=== PATIENT | male | born 2000 | race Caucasian/White ===

== ENCOUNTER → 2020-02-13 | Outpatient (CLI) | payer OTHER | LOC: HYPER 09:16 | DX: T81.31XA Disruption of external operation (surgical) wound, not elsewhere classified, initial encounter (principal); L97.312 Non-pressure chronic ulcer of right ankle with fat layer exposed; Y83.8 Other surgical procedures as the cause of abnormal reaction of the patient, or of later complication, without mention of misadventure at the time of the procedure; Y92.89 Other specified places as the place of occurrence of the external cause ==

== ENCOUNTER → 2020-02-20 | Outpatient (CLI) | payer OTHER | LOC: HYPER 09:15 | DX: T81.31XD Disruption of external operation (surgical) wound, not elsewhere classified, subsequent encounter (principal); L97.312 Non-pressure chronic ulcer of right ankle with fat layer exposed; Y83.8 Other surgical procedures as the cause of abnormal reaction of the patient, or of later complication, without mention of misadventure at the time of the procedure ==

== ENCOUNTER → 2020-02-27 | Outpatient (CLI) | payer OTHER | LOC: HYPER 09:31 | DX: T81.31XD Disruption of external operation (surgical) wound, not elsewhere classified, subsequent encounter (principal); L97.312 Non-pressure chronic ulcer of right ankle with fat layer exposed; Y83.8 Other surgical procedures as the cause of abnormal reaction of the patient, or of later complication, without mention of misadventure at the time of the procedure ==

== ENCOUNTER → 2020-03-05 | Outpatient (CLI) | payer OTHER | LOC: HYPER 09:13 | DX: T81.31XD Disruption of external operation (surgical) wound, not elsewhere classified, subsequent encounter (principal); L97.312 Non-pressure chronic ulcer of right ankle with fat layer exposed; Y83.8 Other surgical procedures as the cause of abnormal reaction of the patient, or of later complication, without mention of misadventure at the time of the procedure ==

== ENCOUNTER → 2020-03-12 | Outpatient (CLI) | payer OTHER | LOC: HYPER 08:17 | DX: T81.31XD Disruption of external operation (surgical) wound, not elsewhere classified, subsequent encounter (principal); L97.312 Non-pressure chronic ulcer of right ankle with fat layer exposed; Y83.8 Other surgical procedures as the cause of abnormal reaction of the patient, or of later complication, without mention of misadventure at the time of the procedure ==

== ENCOUNTER → 2020-03-19 | Outpatient (CLI) | payer OTHER | LOC: HYPER 08:25 | DX: T81.31XD Disruption of external operation (surgical) wound, not elsewhere classified, subsequent encounter (principal); L97.312 Non-pressure chronic ulcer of right ankle with fat layer exposed; Y83.8 Other surgical procedures as the cause of abnormal reaction of the patient, or of later complication, without mention of misadventure at the time of the procedure ==

== ENCOUNTER → 2020-03-26 | Outpatient (CLI) | payer OTHER | LOC: HYPER 07:41 | PROVIDERS: ATTEND Emergency Medicine | DX: T81.31XD Disruption of external operation (surgical) wound, not elsewhere classified, subsequent encounter (principal); L97.312 Non-pressure chronic ulcer of right ankle with fat layer exposed; L84 Corns and callosities; Y83.8 Other surgical procedures as the cause of abnormal reaction of the patient, or of later complication, without mention of misadventure at the time of the procedure ==